=== PATIENT | female | born 1990 | race Caucasian/White ===

== ENCOUNTER 2016-08-13 21:55 | Emergency (ER) | payer OTHER ==
--- NOTE | 2016-08-19 15:06 | ER ---
ADMIT: 08/13/2016 RM/LOC: ER [facility] MR#: [id number] [id number] [place], [place] [id number] [address] [address] Emergency Room Report SEX: F AGE: 26 : 1990 DATE: 08/13/2016 TIME: 2155 hours. Please refer to my T-sheet for complete H and P. HISTORY OF PRESENT ILLNESS: Briefly, the patient comes and thinks her feet are swollen. She recently spent a couple days at [facility] getting her depression meds under control. She is feeling much better from that. They started her on lisinopril for blood pressure. Now, she thinks it is causing some swelling in her feet. She said she feels a little tight in her chest, kind of tight in her throat, kind of all over, but she thinks it may be the anxiety component. PHYSICAL EXAMINATION: VITAL SIGNS: Her blood pressure is 150/60, pulse 88, respirations 16, temp 96.9, saturating 100%. GENERAL: No acute distress. HEENT: She has no swelling of her lips, no swelling of her throat. LUNGS: Clear. HEART: Regular. ABDOMEN: Soft. EXTREMITIES: Trace edema in lower extremities. NEUROLOGIC: Alert and oriented, nonfocal. EMERGENCY DEPARTMENT COURSE: I had a long discussion with her. She does not have her primary in town, we have assigned her to Dr. Aponte. She has 6 children are is very busy at home, they just recently moved here, but she says her stress has improved. I talked about exercise, it may help more than anything. I want her to stop the lisinopril, watch her pressures, and follow up with Dr. Aponte, he is on city call. ASSESSMENT: Fractionalized lisinopril. PLAN: Stop lisinopril. Take some Benadryl when she gets home. Check blood pressure, no more than once a day, but write it down. Follow up with Dr. Aponte in about a week to recheck. Hussein Haque MD/ rao JOB #: [id number] CC: Luis Acosta MD, Attending Physician Lily Verdugo APRN, Family Physician
== END 2016-08-13 22:35 | disposition home or self-care (01) ==
LOC: ER 21:55
DX: T46.4X5A Adverse effect of angiotensin-converting-enzyme inhibitors, initial encounter (principal); I10 Essential (primary) hypertension; F32.9 Major depressive disorder, single episode, unspecified; Z79.899 Other long term (current) drug therapy